=== PATIENT | female | born 1970 | race Caucasian/White ===

== ENCOUNTER → 2021-02-08 12:45 | Outpatient (CLI) | payer BC, SELFPAY ==
--- NOTE | 2021-02-08 12:54 | RAD_ITS ---
STUDY: BARIUM ENEMA. REASON FOR EXAM: Female, 50 years old. INCOMPLETE COLONS COPY FLUOROSCOPY TIME (if supplied): ( 38 seconds ) minutes/seconds. 11 images were obtained. TECHNIQUE: A supervisor felling bucking film was obtained. Following this, barium was introduced retrograde through the rectum. The entire colon was opacified. COMPARISON: None. FINDINGS: There is no evidence of antegrade or retrograde obstruction to the flow of contrast. There is redundancy of the sigmoid colon. No intraluminal filling defect or mass lesion is seen. RAD/Barium Enema w/Air Contrast IMPRESSION: Redundancy of the sigmoid colon. No abnormality is seen. Electronically Signed: Antonio Avendano MD at 14:23 EDT , Service support ,
== END ==
PROVIDERS: PCP Family Medicine; Referring Provider Surgery; Visit Provider Surgery
DX: Q43.8 Other specified congenital malformations of intestine (principal)
CPT/HCPCS: 74280